=== PATIENT | female | born 1965 | race Hispanic/Latino ===

== ENCOUNTER → 2023-09-22 | Outpatient (CLI) | payer OTHER | END | disposition home or self-care (01) | LOC: RAH 15:07 | PROVIDERS: ATTEND Internal Medicine | DX: S32.89XA Fracture of other parts of pelvis, initial encounter for closed fracture (principal); M79.604 Pain in right leg; M16.11 Unilateral primary osteoarthritis, right hip; X58.XXXA Exposure to other specified factors, initial encounter; Y93.89 Activity, other specified; Y92.89 Other specified places as the place of occurrence of the external cause; Y99.8 Other external cause status | CPT/HCPCS: 73502 ==